=== PATIENT | female | born 1985 | race Caucasian/White ===

== ENCOUNTER 2016-12-04 10:47 | Outpatient (RCR) | payer BC ==
[2016-12-24] MEDS ORDERED: PRENATAL (21:05)
[2016-12-24] MEDS ORDERED: MOTRIN 800800 MG/TAB PO (22:46)
[2016-12-24] MEDS ORDERED: PERCOCET 325 MG1 TA2 PO (22:46)
== END 2017-01-01 10:15 | disposition home or self-care (01) ==
LOC: MKS.ESL.PT 10:47
DX: M54.5 Low back pain (principal); M25.552 Pain in left hip; Z33.1 Pregnant state, incidental

== ENCOUNTER 2016-12-24 20:31 | Inpatient (IN) | payer BC ==
[~2016-12-24] VITALS: Ht 170.2 cm; Wt 61.4 kg
[2016-12-24 20:59] VITALS: BP 90/53; PULSE 81; TEMP 98.2
[2016-12-24 21:00] VITALS: BP 90/53; PULSE 81
[2016-12-24] MEDS ORDERED: PRENATAL (21:05)
[2016-12-24 22:45] VITALS: BP 116/55; PULSE 95
[2016-12-24] MEDS ORDERED: PERCOCET 325 MG1 TA2 PO (22:46)
[2016-12-24] MEDS ORDERED: MOTRIN 800800 MG/TAB PO (22:46)
[2016-12-24 23:00] VITALS: BP 98/54; PULSE 95
[2016-12-24 23:30] VITALS: BP 101/62; PULSE 81
[2016-12-24 23:38] LABS: BASO % 0.3 % (0.0-2.0); EOS % 0.3 % (0-4.0); GRAN # 7.2 (1.4-6.5); GRAN % 70.5 % (42.2-75.2); LYMPH % 19.8 % (20.0-51.0); MEAN CELL VOLUME 91 fl (80.0-100.0); MEAN CORPUSCULAR HGB CONC 34 g/dl (33.0-37.0); MEAN PLATELET VOLUME 10.4 fl (7.4-10.4); MONO # 0.8 (0.1-0.6); MONO % 8.2 % (1.7-9.3); PLATELET COUNT 226 K/mm3 (130-400); RED BLOOD COUNT 3.41 M/mm3 (4.10-5.30); REDCELL DISTRIBUTION WIDTH-CV 13.1 % (11.5-14.5); WHITE BLOOD COUNT 10.2 K/mm3 (4.8-10.8)
[2016-12-24 23:39] LABS: HEMOGLOBIN 10.4 g/dl (12.5-16.0); MEAN CORPUSCULAR HEMOGLOBIN 30 pg (27.0-31.0)
[2016-12-24 23:45] VITALS: BP 106/60; PULSE 86
[2016-12-25] VITALS (13 sets, daily range): BP systolic 92–135; BP diastolic 41–69; PULSE 75–93; TEMP 97.6–98.2
[2016-12-26 09:10] VITALS: BP 96/56; PULSE 83; TEMP 97.9
[2016-12-26 16:20] VITALS: BP 95/50; PULSE 89; TEMP 98.5
[2016-12-26 21:30] VITALS: BP 122/56; PULSE 94; TEMP 97.1
[2016-12-27 08:30] VITALS: BP 117/74; PULSE 85; TEMP 98.5
== END 2016-12-27 12:00 | disposition home or self-care (01) | DRG 775 ==
LOC: LDRO 20:31 → LDR 22:15 → OB 22:15
PROVIDERS: Obstetrics & Gynecology
PROC: 10E0XZZ Delivery of Products of Conception, External Approach (ICD-10-PCS; principal; 2016-12-25)
PROC: 0KQM0ZZ Repair Perineum Muscle, Open Approach (ICD-10-PCS; 2016-12-25)
DX: O48.0 Post-term pregnancy (principal); O70.1 Second degree perineal laceration during delivery; Z3A.40 40 weeks gestation of pregnancy; Z37.0 Single live birth
CPT/HCPCS: J2590; J7120